=== PATIENT | male | born 1960 | race Caucasian/White ===

== ENCOUNTER → 2018-10-24 | Outpatient (CLI) | payer OTHER ==
--- NOTE | 2018-10-24 16:12 | RAD ---
AP view of the pelvis and two-view study of the left hip Clinical indications: Left hip pain. FINDINGS: No acute fracture or dislocation or lytic process is evident. No significant arthritic change is evident. No diastases of the symphysis pubis or either SI joint is seen. IMPRESSION: No significant osseous abnormality. Electronically signed by: Arash Smith MD (10/24/2018 4:09 PM) [id number]
== END | disposition home or self-care (01) ==
LOC: PMG 12:07
PROVIDERS: ATTEND Registered Nurse
DX: M25.552 Pain in left hip (principal)
CPT/HCPCS: 73502

== ENCOUNTER 2018-12-06 10:49 | Emergency (ER) | payer OTHER ==
[2018-12-06 11:02] VITALS: BP 136/96
[2018-12-06] MEDS ORDERED: IV NORMAL SALINE 1,000ML 1,000 ML IV ONE (11:15)
[2018-12-06 11:24] LABS: BASO % 1 % (0-3); EOS # 0.2 x10^3/uL (0.0-0.7); EOS % 3 % (0-3); HEMOGLOBIN 14.4 g/dL (13.0-17.5); LYMPH # 1.4 x10^3/uL (1.0-4.8); LYMPH % 22 % (24-48); MEAN CORPUSCULAR HEMOGLOBIN 31 pg (25-35); MEAN CORPUSCULAR HGB CONC 34 g/dL (31-37); MEAN CORPUSCULAR VOLUME 92 fL (79-100); MONO # 0.7 x10^3/uL (0.0-1.1); MONO % 11 % (0-9); NEUT % 63 % (31-73); PLATELET COUNT 130 x10^3/uL (140-400); RED BLOOD COUNT 4.66 x10^6/uL (4.30-5.70); RED CELL DISTRIBUTION WIDTH 13.5 % (11.5-14.5); WHITE BLOOD COUNT 6.5 x10^3/uL (4.0-11.0)
[2018-12-06] MEDS ORDERED: IV NORMAL SALINE 50ML 50 ML ONE (11:24)
[2018-12-06] MEDS ORDERED: cefTRIAXone SODIUM 1 GM VIAL ONE (11:24)
--- NOTE | 2018-12-06 11:27 | PHYS DOC ---
Past History Past Medical History: Diabetes, DVT, High Cholesterol, Hypertension, Hypothyroid Past Surgical History: Cholecystectomy, Other Additional Past Surgical Histo: aortic vavle replacement; sabiha filter Alcohol Use: None Drug Use: None Adult General Chief Complaint Chief Complaint: LOWEREXTREMITY INJURY HPI HPI 57-year-old male presents with left great toe injury. Patient is diabetic and has very little feeling in his feet. He walked between a half mile and a mild 4 days ago and the next morning noticed that he had a large area of skin missing from his great toe on the left foot. The patient uses a walker at baseline. The patient is staying [facility] the local [facility] and does not have a primary care physician. He has not had fever or chills. He has had increased pain in the lower extremity on the left leg up to the knee. 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 On Coumadin, but has not had his INR checked in a couple weeks. Denies shortness of breath or chest pain. Patient denies any other complaints. Review of Systems Review of Systems Constitutional: Denies fever or chills [] Eyes: Denies change in visual acuity, redness, or eye pain [] HENT: Denies nasal congestion or sore throat [] Respiratory: Denies cough or shortness of breath [] Cardiovascular: No additional information not addressed in HPI [] GI: Denies abdominal pain, nausea, vomiting, bloody stools or diarrhea [] : Denies dysuria or hematuria [] Musculoskeletal: Left lower leg pain[] Integument: skin tear left foot.[] Neurologic: Denies headache, focal weakness or sensory changes [] Endocrine: Denies polyuria or polydipsia [] All other systems were reviewed and found to be within normal limits, except as documented in this note. Current Medications Current Medications Current Medications Medications (Trade) Dose Ordered Sig/Frank Start Time Stop Time Status Last Admin Dose Admin Ceftriaxone Sodium 1 gm/ Sodium Chloride 50 ml @ 100 mls/hr 1X ONCE 12/06/18 11:40 12/06/18 12:09 Sodium Chloride 1,000 ml @ 1,000 mls/hr 1X ONCE 12/06/18 11:15 12/06/18 12:14 Allergies Allergies Allergies Coded Allergies Type Severity Reaction Last Updated Verified No Known Drug Allergies 12/06/18 No Physical Exam Physical Exam Constitutional: Well developed, well nourished, no acute distress, non-toxic appearance. [] HENT: Normocephalic, atraumatic, bilateral external ears normal, oropharynx moist, no oral exudates, nose normal. [] Eyes: PERRLA, EOMI, conjunctiva normal, no discharge. [] Neck: Normal range of motion, no tenderness, supple, no stridor. [] Cardiovascular:Heart rate regular rhythm, 4/6 systolic ejection murmur.[] Lungs & Thorax: Bilateral breath sounds clear to auscultation [] Abdomen: Bowel sounds normal, soft, no tenderness, no masses, no pulsatile masses. [] Skin: 3cm diameter skin tear left plantar great toe. erythema and slight warmth surrounding area.[] Back: No tenderness, no CVA tenderness. [] Extremities: Left Greater diameter than right. Lower left leg with discoloration compared to right. [] Neurologic: Alert and oriented X 3, normal motor function, normal sensory function, no focal deficits noted. [] Psychologic: Affect normal, judgement normal, mood normal. [] Current Patient Data Vital Signs Vital Signs Date Time Temp Pulse Resp B/P (MAP) Pulse Ox O2 Delivery O2 Flow Rate FiO2 12/06/18 11:02 98.3 95 18 96 Room Air EKG EKG [] Radiology/Procedures Radiology/Procedures [] Impressions: EXAM: Left lower extremity venous Doppler sonogram. HISTORY: Pain and swelling. TECHNIQUE: Conroy scale and color Doppler sonographic evaluation of the left lower extremity veins with spectral waveform analysis was performed. FINDINGS: There is normal color flow, normal compressibility and there are normal spectral waveforms in the common femoral, superficial femoral, popliteal, posterior tibial and greater saphenous veins. IMPRESSION: No Doppler evidence of lower extremity deep venous thrombosis. Electronically signed by: Lynn Morales MD (12/06/2018 12:53 PM) [place] [id number] DICTATED AND SIGNED BY: LYNN MORALES MD DATE: 12/06/18 5761 CC: KESHA CALLAWAY DO; RAPHAEL ALMEIDA MEDICAL LANGUAGE SPECIALIST-C ~ Course & Med Decision Making Course & Med Decision Making Pertinent Labs and Imaging studies reviewed. (See chart for details) Patient's labs are unremarkable. His INR is 1.5, which is subtherapeutic. I've advised take his higher dose of Coumadin which is 4 mg couple of days and then return to his normal alternating dosing as previously prescribed. He will follow up outpatient for INR trending. The patient's is negative for DVT. I will treat him for cellulitis. We have given him 1 g Rocephin IV in the ED. I will discharge him on Keflex for 7 days. I have strongly advised that he follow-up with her primary care physician for his INR as well as his wound to make sure it's healing. He is stable for discharge at this time. Dragon Disclaimer Dragon Disclaimer This electronic medical record was generated, in whole or in part, using a voice recognition dictation system. Departure Departure: Impression: Primary Impression: Cellulitis of great toe, left Disposition: 01 HOME, SELF-CARE Condition: STABLE Referrals: RAPHAEL ALMEIDA MEDICAL LANGUAGE SPECIALIST-C (PCP) Patient Instructions: Cellulitis, [id number] Scripts Cephalexin (KEFLEX) 500 Mg Capsule 1 CAP PO TID for cellulitis, #21 CAP Prov: KESHA CALLAWAY DO 12/06/18 KESHA CALLAWAY DO Dec 06, 2018 11:27
[2018-12-06 11:36] LABS: ALBUMIN 3.6 g/dL (3.4-5.0); ALBUMIN/GLOBULIN RATIO 0.9 (1.0-1.7); CALCIUM 8.7 mg/dL (8.5-10.1); CREATININE 1.1 mg/dL (0.7-1.3); GFR 68.8; POTASSIUM 3.9 mmol/L (3.5-5.1); TOTAL BILIRUBIN 0.7 mg/dL (0.2-1.0); TOTAL PROTEIN 7.4 g/dL (6.4-8.2)
[2018-12-06 12:14] LABS: PLT ESTIMATE ADEQUATE (ADEQUATE)
--- NOTE | 2018-12-06 12:56 | RAD ---
EXAM: Left lower extremity venous Doppler sonogram. HISTORY: Pain and swelling. TECHNIQUE: Conroy scale and color Doppler sonographic evaluation of the left lower extremity veins with spectral waveform analysis was performed. FINDINGS: There is normal color flow, normal compressibility and there are normal spectral waveforms in the common femoral, superficial femoral, popliteal, posterior tibial and greater saphenous veins. IMPRESSION: No Doppler evidence of lower extremity deep venous thrombosis. Electronically signed by: Lynn Linton MD (12/06/2018 12:53 PM) [place] [id number]
[2018-12-06] MEDS ORDERED: CEPH-264 PO (13:16)
== END 2018-12-06 13:18 | disposition home or self-care (01) ==
LOC: ER 10:49
DX: S91.112A Laceration without foreign body of left great toe without damage to nail, initial encounter (principal); L03.032 Cellulitis of left toe; E11.9 Type 2 diabetes mellitus without complications; E78.00 Pure hypercholesterolemia, unspecified; I10 Essential (primary) hypertension; E03.9 Hypothyroidism, unspecified; Z86.718 Personal history of other venous thrombosis and embolism; X58.XXXA Exposure to other specified factors, initial encounter; Y93.01 Activity, walking, marching and hiking; Y92.89 Other specified places as the place of occurrence of the external cause; Y99.8 Other external cause status
CPT/HCPCS: 36415; 80053; 85025; 85610; 85730; 93971; 96365; 99285; J0696; J7030

== ENCOUNTER 2018-12-27 15:15 | Emergency (ER) | payer OTHER ==
[~2018-12-27 15:15] MED LIST: CEPH-264 PO
[2018-12-27 15:40] VITALS: BP 170/82
--- NOTE | 2018-12-27 16:07 | RAD ---
Examination: FOOT LEFT 3V History: Hallux cellulitis Comparison/Correlation: None Findings: Total 3 images of the left foot were obtained. Small calcaneal spur is present. Vascular calcifications are notable. No displaced fracture or bone destruction is seen. Impression: No suspicious process. Consider further imaging if osteomyelitis is a concern. Electronically signed by: Baldev Correa MD (12/27/2018 4:04 PM) [facility]
--- NOTE | 2018-12-27 16:14 | RAD ---
LEFT LEG VENOUS DOPPLER STUDY: Clinical indications: Left leg swelling and pain. History of DVT in 2008. Findings: Duplex sonography (including ruiz scale evaluation and color flow and waveform spectral analysis) of the proximal aspect of the greater saphenous vein and the proximal aspect of the profunda femoral vein and the entire length of the common femoral and superficial femoral and popliteal veins and the tibioperoneal trunk and the proximal aspect of the posterior tibial and peroneal veins of the left leg was performed. Normal compressibility, augmentation of color Doppler flow after calf compression, and respiratory variation of Doppler flow is seen. Thus, there are no sonographic findings of deep venous thrombosis within these veins. Impression: There are no sonographic findings of deep venous thrombosis within the veins discussed above of the left lower extremity. Electronically signed by: Arash Smith MD (12/27/2018 4:11 PM) [facility]
[2018-12-27] MEDS ORDERED: CLIN300C8 PO (16:31)
--- NOTE | 2018-12-27 16:40 | PHYS DOC ---
Past History Past Medical History: Diabetes, DVT, High Cholesterol, Hypertension, Hypothyroid Past Surgical History: Cholecystectomy, Other Additional Past Surgical Histo: aortic vavle replacement; sabiha filter Alcohol Use: None Drug Use: None Adult General Chief Complaint Chief Complaint: FOOT INJURY PAIN HPI HPI Patient is a [58-year-old male presenting with foot problem he has had some redness and swelling of his left leg for about a month now took Keflex somewhat better he doesn't have a follow-up doctor yet he has been going to an urgent care locally he cut his Coumadin level checked recently he said it was a 1.5 he finishes antibiotics U stranding to wound care he is at the [facility] so he just wanted to come in to get checked out to see what I thought this foot. No fever Review of Systems Review of Systems Constitutional: Denies fever or chills [] Eyes: Denies change in visual acuity, redness, or eye pain [] HENT: Denies nasal congestion or sore throat [] Respiratory: Denies cough or shortness of breath [] Musculoskeletal: Endorses chronic left leg swelling he did have a DVT in the past he is on Coumadin Neurologic: Denies headache, focal weakness or sensory changes [] Endocrine: Denies polyuria or polydipsia [] All other systems were reviewed and found to be within normal limits, except as documented in this note. Allergies Allergies Allergies Coded Allergies Type Severity Reaction Last Updated Verified No Known Drug Allergies 12/06/18 No Physical Exam Physical Exam Constitutional: Well developed, well nourished, no acute distress, non-toxic appearance. [] HENT: Normocephalic, atraumatic, bilateral external ears normal, oropharynx moist, no oral exudates, nose normal. [] Eyes: PERRLA, EOMI, conjunctiva normal, no discharge. [] Neck: Normal range of motion, no tenderness, supple, no stridor. [] Cardiovascular:Heart rate regular rhythm, no murmur [] Lungs & Thorax: Bilateral breath sounds clear to auscultation [] Abdomen: Bowel sounds normal, soft, no tenderness, no masses, no pulsatile masses. [] Skin: Warm, dry, no erythema, no rash. [] Back: No tenderness, no CVA tenderness. [] Extremities: 1-2+ edema in the left lower extremity there is some erythema diffusely mild tenderness there is also erythema of the left great toe with a large callus formation noted on the plantar aspect no pus was identified Neurologic: Alert and oriented X 3, normal motor function, normal sensory function, no focal deficits noted. [] Psychologic: Affect normal, judgement normal, mood normal. [] Current Patient Data Vital Signs Vital Signs Date Time Temp Pulse Resp B/P (MAP) Pulse Ox O2 Delivery O2 Flow Rate FiO2 12/27/18 15:40 96 18 98 Room Air Lab Results * None Blood Pressure Systolic * 170 mm Hg (100-140) H Blood Pressure Diastolic * 82 mm Hg (60-100) Blood Pressure Mean * 111 mm Hg Pulse Rate * 96 beats per minute (60-90) H Respiratory Rate * 18 breaths per minute (12-24) Oxygen Delivery Method * Room Air Bedside Pulse Oximetry * 98 % Treatment Prior to Arrival * No Complaint of Pain * No Pain Assessment Label * Left LOC * Alert Coma Scale Eye Opening * 4-Spontaneous Coma Scale Motor * 6-Obeys Commands Coma Scale Verbal * 5-Oriented [place] Coma Scale Total * 15 points (-15) Dialysis * No EKG EKG [] Radiology/Procedures Radiology/Procedures [] Impression: No suspicious process. Consider further imaging if osteomyelitis is a concern. Electronically signed by: Baldev Rodriguez MD (12/27/2018 4:04 PM) [facility] DICTATED AND SIGNED BY: BALDEV RODRIGUEZ MD DATE: 12/27/18 1604 CC: SAUL WADE MD; RAPHAEL ALMEIDA UPPER EXTREMITY SURGEON-C ~ Impressions: gs: Duplex sonography (including ruiz scale evaluation and color flow and waveform spectral analysis) of the proximal aspect of the greater saphenous vein and the proximal aspect of the profunda femoral vein and the entire length of the common femoral and superficial femoral and popliteal veins and the tibioperoneal trunk and the proximal aspect of the posterior tibial and peroneal veins of the left leg was performed. Normal compressibility, augmentation of color Doppler flow after calf compression, and respiratory variation of Doppler flow is seen. Thus, there are no sonographic findings of deep venous thrombosis within these veins. Impression: There are no sonographic findings of deep venous thrombosis within the veins discussed above of the left lower extremity. Electronically signed by: Akilah Smith MD (12/27/2018 4:11 PM) [place] [id number] DICTATED AND SIGNED BY: AKILAH SMITH MD DATE: 12/27/18 1611 CC: SAUL WADE MD; RAPHAEL ALMEIDA ~ Course & Med Decision Making Course & Med Decision Making Pertinent Labs and Imaging studies reviewed. (See chart for details) []Foot and ultrasound of the left side were both negative x-ray and ultrasound. No signs of DVT or osteomyelitis radiographically patient still has some erythema of the toe we will broaden spectrum to clindamycin from cephalexin which she had last month I talked her about the importance of taking a probiotic with clindamycin the importance of close follow-up have INR checked next week and wound care follow- up in 7-10 days for reevaluation if at all possible as well too he understands voiced understanding of the instructions. No INR checked today he said he had it last week and it was somewhat subtherapeutic he I believe should have it next week after he has been on clindamycin for a while Dragon Disclaimer Dragon Disclaimer This electronic medical record was generated, in whole or in part, using a voice recognition dictation system. Departure Departure: Impression: Primary Impression: Cellulitis Disposition: 01 HOME, SELF-CARE Condition: STABLE Patient Instructions: Cellulitis, [id number] Additional Instructions: take probiotic with the antibiotic. get your coumadin level checked again next week. follow up with wound care if not improved in ten days. Scripts Clindamycin Hcl (CLINDAMYCIN HCL) 300 Mg Capsule 1 CAP PO TID for cellulitis, #21 CAP Prov: SAUL WADE MD 12/27/18 SAUL WADE MD Dec 27, 2018 16:40
== END 2018-12-27 17:00 | disposition home or self-care (01) ==
LOC: ER 15:15
DX: L03.116 Cellulitis of left lower limb (principal); Z86.718 Personal history of other venous thrombosis and embolism; E11.9 Type 2 diabetes mellitus without complications; E78.00 Pure hypercholesterolemia, unspecified; I10 Essential (primary) hypertension; E03.9 Hypothyroidism, unspecified
CPT/HCPCS: 73630; 93971; 99284